=== PATIENT | male | born 1950 ===

== ENCOUNTER 2016-12-13 13:11 | Inpatient (IN) | payer OTHER ==
[2016-12-13] MEDS ORDERED: Sodium Chloride 0.9% 1,000 ML IV ONE (13:55)
[2016-12-13 14:39] LABS: BASO % 0.5 % (0.0-2.0); EOS # 0.1 K/uL (0.0-0.7); EOS % 1.4 % (0.0-4.0); HEMATOCRIT 46.4 % (35.0-51.0); LYMPH # 1.9 K/uL (1.0-4.3); LYMPH % 23.6 % (20.0-40.0); MEAN CELL VOLUME 92.1 fL (80.0-94.0); MEAN CORPUSCULAR HEMOGLOBIN 32.2 pg (27.0-31.0); MEAN PLATELET VOLUME 8.9 fL (7.2-11.7); MONO # 0.5 K/uL (0.0-0.8); MONO % 6.3 % (0.0-10.0); NRBC % 0.1 % (0.0-2.0); RED CELL DISTRIBUTION WIDTH 13.1 % (11.5-14.5); WHITE BLOOD COUNT 8.2 K/uL (4.8-10.8)
--- NOTE | 2016-12-13 14:42 | C.PDOC ---
History Of Present Illness 66 y/o male presents to ED with complaints of dizziness as "room spinning" since this morning. Patient states he had same symptoms 3 days ago and resolved but today symptoms worsen with associated nausea which prompted visit to ED today. No other complaints at this time. Time Seen by Provider: 12/13/16 13:42 Chief Complaint (Nursing): Dizziness/Lightheaded History Per: Patient History/Exam Limitations: no limitations Onset/Duration Of Symptoms: Days Current Symptoms Are (Timing): Still Present Past Medical History Reviewed: Historical Data, Nursing Documentation, Vital Signs Vital Signs: Last Vital Signs Temp 98 F 12/13/16 13:35 Pulse 72 12/13/16 13:35 Resp 20 12/13/16 13:35 BP 161/98 H 12/13/16 13:35 Pulse Ox 97 12/13/16 15:46 - Medical History PMH: Hypercholesterolemia Surgical History: No Surg Hx Family History: States: No Known Family Hx - Social History Hx Alcohol Use: No Hx Substance Use: No - Immunization History Hx Tetanus Toxoid Vaccination: No Hx Influenza Vaccination: No Hx Pneumococcal Vaccination: No Review Of Systems Constitutional: Negative for: Fever, Chills Gastrointestinal: Positive for: Nausea. Negative for: Vomiting, Abdominal Pain , Diarrhea Skin: Negative for: Rash Neurological: Positive for: Dizziness. Negative for: Weakness, Numbness, Change in Speech, Confusion Physical Exam - Physical Exam Appears: Non-toxic, No Acute Distress Skin: Normal Color, Warm, Dry, No Rash Head: Atraumatic, Normacephalic Eye(s): bilateral: Normal Inspection, PERRL, EOMI Oral Mucosa: Moist Neck: Normal ROM, Supple Chest: Symmetrical Cardiovascular: Rhythm Regular Respiratory: Normal Breath Sounds, No Rales, No Rhonchi, No Wheezing Gastrointestinal/Abdominal: Soft, No Tenderness, No Guarding, No Rebound Extremity: Normal ROM, Capillary Refill (<2 seconds) Neurological/Psych: Oriented x3, Normal Speech, Normal Motor, Normal Sensation ED Course And Treatment - Laboratory Results Result Diagrams: 12/13/16 14:31 12/13/16 14:31 Lab Interpretation: Normal ECG: Interpreted By Me, Viewed By Me ECG Rhythm: Sinus Rhythm, R BBB ECG Interpretation: No Acute Changes Rate From EC O2 Sat by Pulse Oximetry: 97 (RA) Pulse Ox Interpretation: Normal - Radiology CXR: Interpreted by Me CXR Interpretation: Yes: No Acute Disease - CT Scan/US No standard instances Other Rad Studies (CT/US): Read By Radiologist, Radiology Report Reviewed CT/US Interpretation: FINDINGS: HEMORRHAGE: No intracranial hemorrhage. BRAIN : There is a 9.5 mm lucency identified expanding the caudate head and narrowing the left frontal horn suspicious for potential acute subacute ischemic infarction. Differential diagnosis would also include infection or potential space-occupying lesion. Follow-up MRI is advised for greater characterization. Otherwise, a chronic lacune or dilated perivascular space is seen at the more lateral left basal ganglia. Sulci and cisterns appeared within normal limits and no cortical edema is appreciated throughout the cerebrum cerebellum or brainstem. There is no suspicious extra-axial fluid collection identified. Atherosclerotic changes are identified at the cavernous internal carotid artery segments at the skullbase. VENTRICLES: Unremarkable. No hydrocephalus. CALVARIUM: Unremarkable. PARANASAL SINUSES: Unremarkable as visualized. No significant inflammatory changes. MASTOID AIR CELLS: Unremarkable as visualized. No inflammatory changes. OTHER FINDINGS: None. IMPRESSION: Findings suspicious for a small ischemic infarct at the left caudate head of acute to subacute time frame though other etiologies are possible as discussed above. Follow-up MRI is advised for further characterization with remainder of the brain reflecting dilated perivascular space or chronic lacune at the more lateral left basal ganglia. Progress Note: Treated with IVF NSS. Ambulating with steady gait Reassessment Condition: Unchanged - Physician Consult Information Physician Contacted: Dasha Mcgarry Outcome Of Conversation: admit NIHSS Stroke Scale - Date/Time Evaluation Performed When Was NIHSS Performed: Baseline - How Severe is the Stoke Level of Consciousness: 0=Alert LOC to Questions: 0=Both comments correct LOC to commands: 0=Obeys both correctly Best Gaze: 0=Normal Visual: 0=No visual loss Facial: 0=Normal Motor Arm - Left: 0=No drift Motor Arm - Right: 0=No drift Motor Leg - Left: 0=No drift Motor Leg - Right: 0=No drift Limb Ataxia: 0=Absent Sensory: 0=Normal Best Language: 0=No aphasia Dysarthia: 0=Normal articulation Extinction & Inattention (Neglect): 0=Normal, no object Score: 0 Severity Of Stroke: 0= No Stroke Medical Decision Making Medical Decision Making: Plan: CT scan, Blood work, UA, ECG Disposition Discussed With : Dasha Mcgarry Doctor Will See Patient In The: Hospital - Disposition Disposition: HOME/ ROUTINE Disposition Time: 16:00 Condition: STABLE Forms: [facility] (Persian) - POA Present On Arrival: None - Clinical Impression Clinical Impression: Dizziness, Cerebrovascular accident (CVA) - PA / [employer] / Resident Statement MD/DO has reviewed & agrees with the documentation as recorded. - Scribe Statement The provider has reviewed the documentation as recorded by the Scribe Anshul Francis All medical record entries made by the Ondinaibe were at my direction and personally dictated by me. I have reviewed the chart and agree that the record accurately reflects my personal performance of the history, physical exam, medical decision making, and the department course for this patient. I have also personally directed, reviewed, and agree with the discharge instructions and disposition. Decision To Admit - Pt Status Changed To: Hospital Disposition Of: Inpatient - Admit Certification Admit to Inpatient:: After my assessment, the patient will require hospitalization for at least two midnights. This is because of the severity of symptoms shown, intensity of services needed, and/or the medical risk in this patient being treated as an outpatient. - InPatient: Physician Admission Certification: I certify that this patient requires 2 or more midnights of care for the following reason:: Ischemic Infarct. Dizziness - . Bed Request Type: Telemetry Admitting Physician: Dasha Mcgarry Patient Diagnosis: Dizziness, Cerebrovascular accident (CVA)
[2016-12-13] MEDS ORDERED: Sodium Chloride 0.9% 1,000 ML ONE (14:59)
[2016-12-13 15:01] LABS: CHLORIDE 100 mmol/L (98-107); POTASSIUM 3.7 mmol/L (3.6-5.2); SODIUM 134 mmol/L (132-148)
[2016-12-13 15:03] LABS: BILIRUBIN,TOTAL 0.5 mg/dL (0.2-1.3); CARBON DIOXIDE 23 mmol/L (22-30); GFR AFRICAN-AMERICAN > 60
[2016-12-13 15:04] LABS: ALB/GLOB RATIO 1.1 (1.0-2.1); ALKALINE PHOSPHATASE 57 U/L (38-126); ALT/SGPT 59 U/L (21-72); AST/SGOT 41 U/L (17-59); BLOOD UREA NITROGEN 15 mg/dL (9-20); CALCIUM 9.3 mg/dl (8.6-10.4); GLUCOSE,RANDOM 101 mg/dL (75-110); TOTAL PROTEIN 7.9 g/dL (6.3-8.3)
--- NOTE | 2016-12-13 15:06 | CT ---
PROCEDURE: CT HEAD WITHOUT CONTRAST. HISTORY: R/O Bleed COMPARISON: None available. TECHNIQUE: Axial computed tomography images were obtained through the head/brain without intravenous contrast. Radiation dose: Total exam DLP = 877.56 mGy-cm. This CT exam was performed using one or more of the following dose reduction techniques: Automated exposure control, adjustment of the mA and/or kV according to patient size, and/or use of iterative reconstruction technique. FINDINGS: HEMORRHAGE: No intracranial hemorrhage. BRAIN: There is a 9.5 mm lucency identified expanding the caudate head and narrowing the left frontal horn suspicious for potential acute subacute ischemic infarction. Differential diagnosis would also include infection or potential space-occupying lesion. Follow-up MRI is advised for greater characterization. Otherwise, a chronic lacune or dilated perivascular space is seen at the more lateral left basal ganglia. Sulci and cisterns appeared within normal limits and no cortical edema is appreciated throughout the cerebrum cerebellum or brainstem. There is no suspicious extra-axial fluid collection identified. Atherosclerotic changes are identified at the cavernous internal carotid artery segments at the skullbase. VENTRICLES: Unremarkable. No hydrocephalus. CALVARIUM: Unremarkable. PARANASAL SINUSES: Unremarkable as visualized. No significant inflammatory changes. MASTOID AIR CELLS: Unremarkable as visualized. No inflammatory changes. OTHER FINDINGS: None. IMPRESSION: Findings suspicious for a small ischemic infarct at the left caudate head of acute to subacute time frame though other etiologies are possible as discussed above. Follow-up MRI is advised for further characterization with remainder of the brain reflecting dilated perivascular space or chronic lacune at the more lateral left basal ganglia.
[2016-12-13 15:14] LABS: RBC URINE < 1 /hpf (0-3); URINE BACTERIA RARE (<OCC); URINE BILIRUBIN NEGATIVE (NEGATIVE); URINE BLOOD NEGATIVE (NEGATIVE); URINE COLOR Yellow (YELLOW); URINE GLUCOSE (UA) 2+ mg/dL (Normal); URINE KETONE NEGATIVE (NEGATIVE); URINE LEUKOCYTE ESTERASE NEG Leu/uL (Negative); URINE PROTEIN NEGATIVE (NEGATIVE); URINE UROBILINOGEN NORMAL mg/dL (0.2-1.0)
--- NOTE | 2016-12-13 15:53 | RAD ---
HISTORY: SOB COMPARISON: None available. TECHNIQUE: Chest PA and lateral FINDINGS: Examination limited by habitus. LUNGS: No focal consolidation. Please note that chest x-ray has limited sensitivity for the detection of pulmonary masses. PLEURA: No significant pleural effusion identified. No definite pneumothorax . CARDIOVASCULAR: Heart size appears within normal limits. OSSEOUS STRUCTURES: Degenerative changes of the spine. VISUALIZED UPPER ABDOMEN: Unremarkable. OTHER FINDINGS: None. IMPRESSION: No focal consolidation, significant pleural effusion, or definite pneumothorax identified.
--- NOTE | 2016-12-13 16:09 | CP.PCM.HP ---
<Namita Larsen - Last Filed: 12/13/16 16:33> History of Present Illness - History of Present Illness History of Present Illness: CC: " I was feeling dizzy" HPI: Patient is a 66 year old male with PMHx of hypertension, hyperlipidemia and Vitamin D deficiency presenting for dizziness that started this AM. Patient reports feeling groggy and lightheaded upon awakening. Patient says he took a sleeping pill, Abenol PM, at 2:30am this morning. Patient reports associated nausea. Patient denies having felt like the room was spinning or that he was spinning or feeling imbalanced. Patient reports resolution of symptoms with meclizine in ER. Patient reports an episode of dizziness on at 3pm during which he felt like the room was spinning. He did not feel any dizziness or lightheadedness on Sunday. Patient denies fever, chills, headache , vision change, chest pain, palpitations, SOB, abdominal pain, vomiting, diarrhea, constipation, dysuria, sick contacts. PMD: Dr. Jimenez PMHx: as above PSHx: denies Family Hx: Brother - colon CA, Mother- stomach CA, Father - liver CA Social History: smoked 15 cig/day from 1972 to 2000, denies ETOH, denies illicit drugs, works as a private line haul driver Allergies: ASA - hives Present on Admission - Present on Admission Any Indicators Present on Admission: No Review of Systems - Constitutional Constitutional: absent: Chills, Fever - EENT Eyes: absent: Change in Vision Ears: Dizziness Nose/Mouth/Throat: absent: Sore Throat - Cardiovascular Cardiovascular: absent: Chest Pain, Palpitations - Respiratory Respiratory: absent: Cough, Dyspnea - Gastrointestinal Gastrointestinal: Nausea. absent: Abdominal Pain, Constipation, Diarrhea, Vomiting - Genitourinary Genitourinary: absent: Dysuria - Musculoskeletal Musculoskeletal: absent: Neck Pain - Neurological Neurological: Dizziness, Weakness. absent: Confusion, Focal Weakness, Headaches , Syncope - Endocrine Endocrine: absent: Palpitations - Hematologic/Lymphatic Hematologic: absent: Easy Bleeding, Easy Bruising Past Patient History - Past Medical History & Family History Past Medical History?: No Pertinent Family History: colon CA, Mother- stomach CA, Father - liver CA - Past Social History Smoking Status: Former Smoker Occupation: private line haul driver Alcohol: None Drugs: Denies - CARDIAC Hx Hypercholesterolemia: Yes - PULMONARY Hx Respiratory Disorders: No - NEUROLOGICAL Hx Neurological Disorder: No - HEENT Hx HEENT Problems: No - RENAL Hx Chronic Kidney Disease: No - ENDOCRINE/METABOLIC Hx Endocrine Disorders: No - HEMATOLOGICAL/ONCOLOGICAL Hx Blood Disorders: No - INTEGUMENTARY Hx Dermatological Problems: No - MUSCULOSKELETAL/RHEUMATOLOGICAL Hx Musculoskeletal Disorders: No - GASTROINTESTINAL Hx Gastrointestinal Disorders: No - GENITOURINARY/GYNECOLOGICAL Hx Genitourinary Disorders: No - PSYCHIATRIC Hx Substance Use: No - SURGICAL HISTORY Hx Surgeries: No - ANESTHESIA Hx Anesthesia: No Meds Allergies/Adverse Reactions: Allergies Allergy/AdvReac Type Severity Reaction Status Date / Time aspirin Allergy RASH Verified 03/22/15 07:53 Physical Exam - Constitutional Appears: Non-toxic, No Acute Distress - Head Exam Head Exam: NORMAL INSPECTION - Eye Exam Eye Exam: EOMI, PERRL - ENT Exam ENT Exam: Mucous Membranes Moist - Respiratory Exam Respiratory Exam: Clear to Auscultation Bilateral, NORMAL BREATHING PATTERN. absent: Rales, Rhonchi, Wheezes - Cardiovascular Exam Cardiovascular Exam: REGULAR RHYTHM, +S1, +S2. absent: Gallop, Rubs, Systolic Murmur - GI/Abdominal Exam GI & Abdominal Exam: Normal Bowel Sounds, Soft. absent: Firm, Guarding, Tenderness - Extremities Exam Extremities exam: Positive for: normal capillary refill. Negative for: pedal edema - Neurological Exam Neurological exam: Alert, CN II-XII Intact, Normal Gait, Oriented x3 Additional comments: sensation intact b/l CN II-XII intact muscle strength 5/5 b/l negative Babinski negative Rhomberg negative finger to nose negative heel to bentley normal proprioception - Psychiatric Exam Psychiatric exam: Normal Affect, Normal Mood Results - Vital Signs Recent Vital Signs: Last Vital Signs Temp 98 F 12/13/16 13:35 Pulse 72 12/13/16 13:35 Resp 20 12/13/16 13:35 BP 161/98 H 12/13/16 13:35 Pulse Ox 97 12/13/16 15:46 - Labs Result Diagrams: 12/13/16 14:31 12/13/16 14:31 Labs: Laboratory Results - last 24 hr 12/13/16 12/13/16 12/13/16 14:31 14:31 15:05 WBC 8.2 RBC 5.04 Hgb 16.2 Hct 46.4 MCV 92.1 MCH 32.2 H MCHC 35.0 RDW 13.1 Plt Count 179 MPV 8.9 Neut % (Auto) 68.2 Lymph % (Auto) 23.6 [place] % (Auto) 6.3 Eos % (Auto) 1.4 Baso % (Auto) 0.5 Neut # 5.6 Lymph # 1.9 [place] # 0.5 Eos # 0.1 Baso # 0.0 Sodium 134 Potassium 3.7 Chloride 100 Carbon Dioxide 23 Anion Gap 14 BUN 15 Creatinine 0.8 Est GFR ( Amer) > 60 Est GFR (Non-Af Amer) > 60 Random Glucose 101 Calcium 9.3 Total Bilirubin 0.5 AST 41 ALT 59 Alkaline Phosphatase 57 Total Protein 7.9 Albumin 4.2 Globulin 3.7 Albumin/Globulin Ratio 1.1 Urine Color Yellow Urine Clarity Clear Urine pH 7.0 Ur Specific [place] 1.014 Urine Protein Negative Urine Glucose (UA) 2+ H Urine Ketones Negative Urine Blood Negative Urine Nitrate Negative Urine Bilirubin Negative Urine Urobilinogen Normal Ur Leukocyte Esterase Neg Urine RBC (Auto) < 1 Urine Bacteria Rare Assessment & Plan - Assessment and Plan (Free Text) Assessment: Left Caudate Infarct Likely secondary to history of hyperlipidemia and hypertension for which patient has previously refused to take medication Head CT 12/13/16 - suspicious for small ischemic infarct and left head of caudate of acute to subacute timeframe though other etiologies are possible. F/ U MRI is advised (please see full report) - F/U MRI in AM - F/U ECHO - F/U carotid dopplers - F/U lipid panel (LDL in 170s in April 2016), HgbA1C (5.3 in April 2016), TSH and free T4 (normal in April 2016) No ASA as patient is allergic Plavix 75mg PO daily Crestor 10mg PO HS Physical therapy Occupational therapy Neuro consult - Dr. Rosario - f/u recommendations Abnormal EKG EKG 12/13/16 - NSR with RBBB Same as EKG from 2016 Hypertension BP in 160s/100s Will keep in this range for at least 24 hours as patient has had an acute infarct Nursing communication to page resident if BP increases over 180/120 Will consider starting a low dose antihypertensive tomorrow Hyperlipidemia - F/U lipid panel Crestor 10mg PO HS Prophylaxis Protonix 40mg PO daily SCDs chemical VTE prophylaxis contraindicated secondary to acute infarct <Diego Maldonado - Last Filed: 12/13/16 19:02> Results - Vital Signs Recent Vital Signs: Last Vital Signs Temp 98 F 12/13/16 13:35 Pulse 71 12/13/16 16:30 Resp 23 12/13/16 16:30 BP 160/109 H 12/13/16 16:30 Pulse Ox 96 12/13/16 16:30 - Labs Result Diagrams: 12/13/16 14:31 12/13/16 14:31 Labs: Laboratory Results - last 24 hr 12/13/16 12/13/16 12/13/16 14:31 14:31 15:05 WBC 8.2 RBC 5.04 Hgb 16.2 Hct 46.4 MCV 92.1 MCH 32.2 H MCHC 35.0 RDW 13.1 Plt Count 179 MPV 8.9 Neut % (Auto) 68.2 Lymph % (Auto) 23.6 [place] % (Auto) 6.3 Eos % (Auto) 1.4 Baso % (Auto) 0.5 Neut # 5.6 Lymph # 1.9 [place] # 0.5 Eos # 0.1 Baso # 0.0 PT INR Sodium 134 Potassium 3.7 Chloride 100 Carbon Dioxide 23 Anion Gap 14 BUN 15 Creatinine 0.8 Est GFR ( Amer) > 60 Est GFR (Non-Af Amer) > 60 Random Glucose 101 Hemoglobin A1c Calcium 9.3 Total Bilirubin 0.5 AST 41 ALT 59 Alkaline Phosphatase 57 Troponin I Total Protein 7.9 Albumin 4.2 Globulin 3.7 Albumin/Globulin Ratio 1.1 Triglycerides Cholesterol LDL Cholesterol Direct HDL Cholesterol Urine Color Yellow Urine Clarity Clear Urine pH 7.0 Ur Specific [place] 1.014 Urine Protein Negative Urine Glucose (UA) 2+ H Urine Ketones Negative Urine Blood Negative Urine Nitrate Negative Urine Bilirubin Negative Urine Urobilinogen Normal Ur Leukocyte Esterase Neg Urine RBC (Auto) < 1 Urine Bacteria Rare Blood Type Antibody Screen 12/13/16 12/13/16 12/13/16 16:09 16:09 16:09 WBC RBC Hgb Hct MCV MCH MCHC RDW Plt Count MPV Neut % (Auto) Lymph % (Auto) [place] % (Auto) Eos % (Auto) Baso % (Auto) Neut # Lymph # [place] # Eos # Baso # PT 10.4 INR 0.9 Sodium Potassium Chloride Carbon Dioxide Anion Gap BUN Creatinine Est GFR ( Amer) Est GFR (Non-Af Amer) Random Glucose Hemoglobin A1c 5.3 Calcium Total Bilirubin AST ALT Alkaline Phosphatase Troponin I < 0.0120 Total Protein Albumin Globulin Albumin/Globulin Ratio Triglycerides 234 H D Cholesterol 215 H LDL Cholesterol Direct 186 H HDL Cholesterol 43 Urine Color Urine Clarity Urine pH Ur Specific [place] Urine Protein Urine Glucose (UA) Urine Ketones Urine Blood Urine Nitrate Urine Bilirubin Urine Urobilinogen Ur Leukocyte Esterase Urine RBC (Auto) Urine Bacteria Blood Type Antibody Screen 12/13/16 16:09 WBC RBC Hgb Hct MCV MCH MCHC RDW Plt Count MPV Neut % (Auto) Lymph % (Auto) [place] % (Auto) Eos % (Auto) Baso % (Auto) Neut # Lymph # [place] # Eos # Baso # PT INR Sodium Potassium Chloride Carbon Dioxide Anion Gap BUN Creatinine Est GFR ( Amer) Est GFR (Non-Af Amer) Random Glucose Hemoglobin A1c Calcium Total Bilirubin AST ALT Alkaline Phosphatase Troponin I Total Protein Albumin Globulin Albumin/Globulin Ratio Triglycerides Cholesterol LDL Cholesterol Direct HDL Cholesterol Urine Color Urine Clarity Urine pH Ur Specific [place] Urine Protein Urine Glucose (UA) Urine Ketones Urine Blood Urine Nitrate Urine Bilirubin Urine Urobilinogen Ur Leukocyte Esterase Urine RBC (Auto) Urine Bacteria Blood Type B POSITIVE Antibody Screen Negative Attending/Attestation - Attestation I have personally seen and examined this patient.: Yes I have fully participated in the care of the patient.: Yes I have reviewed all pertinent clinical information: Yes Notes (Text): Patient is a 66 year old male with PMHx of hypertension, hyperlipidemia and Vitamin D deficiency presenting for dizziness that started at 3pm on 12/11 .His dizziness got better yesterday and came back this morning.He is feeling better after he got Meclizine at ER.He was not taking meds for HTH and HLD Dizziness was associated with nausea,no weakness,no vision changes,nO change in his speech Patient was seen and examined with the resident at ER.Agree with the residents assessment and plan.We will monitor BP without antihypertensive at this time / permissive hypertension D/W neurologist We will start on low dose ACEI/ARB,plavix and statin .MRI and corotid doppler ordered
[2016-12-13 16:20] LABS: INR 0.9
[2016-12-13 16:24] LABS: CHOLESTEROL 215 mg/dL (0-199)
--- NOTE | 2016-12-14 07:21 | CP.PCM.CON ---
History of Present Illness - History of Present Illness History of Present Illness: CONSULT DICTATED ATAXIC HEMIPARESIS STROKE PROPHYLAXIS CONTROL HTN, DYSLIPEMIA WORK UP PER ORDER Past Patient History - Past Medical History & Family History Past Medical History?: Yes - Past Social History Smoking Status: Former Smoker - CARDIAC Hx Cardiac Disorders: Yes Hx Hypercholesterolemia: Yes - PULMONARY Hx Respiratory Disorders: No - NEUROLOGICAL Hx Neurological Disorder: No - HEENT Hx HEENT Problems: No - RENAL Hx Chronic Kidney Disease: No - ENDOCRINE/METABOLIC Hx Endocrine Disorders: No - HEMATOLOGICAL/ONCOLOGICAL Hx Blood Disorders: No - INTEGUMENTARY Hx Dermatological Problems: No - MUSCULOSKELETAL/RHEUMATOLOGICAL Hx Musculoskeletal Disorders: No Hx Falls: No - GASTROINTESTINAL Hx Gastrointestinal Disorders: No - GENITOURINARY/GYNECOLOGICAL Hx Genitourinary Disorders: No - PSYCHIATRIC Hx Psychophysiologic Disorder: No Hx Substance Use: No - SURGICAL HISTORY Hx Surgeries: No - ANESTHESIA Hx Anesthesia: Yes Hx Anesthesia Reactions: No Meds Allergies/Adverse Reactions: Allergies Allergy/AdvReac Type Severity Reaction Status Date / Time aspirin Allergy RASH Verified 03/22/15 07:53 - Medications Medications: Current Medications Clopidogrel Bisulfate (Plavix) 75 mg PO DAILY [facility] Last Admin: 12/13/16 16:41 Dose: 75 mg Famotidine (Pepcid) 20 mg PO BID [facility] Last Admin: 12/13/16 18:17 Dose: 20 mg Losartan Potassium (Cozaar) 25 mg PO DAILY [facility] Rosuvastatin Calcium (Crestor) 10 mg PO HS [facility] Last Admin: 12/13/16 22:02 Dose: 10 mg Results - Vital Signs Recent Vital Signs: Last Vital Signs Temp 97.7 F 12/14/16 00:26 Pulse 62 12/14/16 06:25 Resp 20 12/14/16 00:26 BP 132/88 12/14/16 06:25 Pulse Ox 95 12/14/16 00:26 - Labs Result Diagrams: 12/13/16 14:31 12/13/16 14:31 Labs: Laboratory Results - last 24 hr 12/13/16 12/13/16 12/13/16 14:31 14:31 15:05 WBC 8.2 RBC 5.04 Hgb 16.2 Hct 46.4 MCV 92.1 MCH 32.2 H MCHC 35.0 RDW 13.1 Plt Count 179 MPV 8.9 Neut % (Auto) 68.2 Lymph % (Auto) 23.6 [place] % (Auto) 6.3 Eos % (Auto) 1.4 Baso % (Auto) 0.5 Neut # 5.6 Lymph # 1.9 [place] # 0.5 Eos # 0.1 Baso # 0.0 PT INR Sodium 134 Potassium 3.7 Chloride 100 Carbon Dioxide 23 Anion Gap 14 BUN 15 Creatinine 0.8 Est GFR ( Amer) > 60 Est GFR (Non-Af Amer) > 60 Random Glucose 101 Hemoglobin A1c Calcium 9.3 Total Bilirubin 0.5 AST 41 ALT 59 Alkaline Phosphatase 57 Troponin I Total Protein 7.9 Albumin 4.2 Globulin 3.7 Albumin/Globulin Ratio 1.1 Triglycerides Cholesterol LDL Cholesterol Direct HDL Cholesterol Urine Color Yellow Urine Clarity Clear Urine pH 7.0 Ur Specific [place] 1.014 Urine Protein Negative Urine Glucose (UA) 2+ H Urine Ketones Negative Urine Blood Negative Urine Nitrate Negative Urine Bilirubin Negative Urine Urobilinogen Normal Ur Leukocyte Esterase Neg Urine RBC (Auto) < 1 Urine Bacteria Rare Blood Type Antibody Screen 12/13/16 12/13/16 12/13/16 16:09 16:09 16:09 WBC RBC Hgb Hct MCV MCH MCHC RDW Plt Count MPV Neut % (Auto) Lymph % (Auto) [place] % (Auto) Eos % (Auto) Baso % (Auto) Neut # Lymph # [place] # Eos # Baso # PT 10.4 INR 0.9 Sodium Potassium Chloride Carbon Dioxide Anion Gap BUN Creatinine Est GFR ( Amer) Est GFR (Non-Af Amer) Random Glucose Hemoglobin A1c 5.3 Calcium Total Bilirubin AST ALT Alkaline Phosphatase Troponin I < 0.0120 Total Protein Albumin Globulin Albumin/Globulin Ratio Triglycerides 234 H D Cholesterol 215 H LDL Cholesterol Direct 186 H HDL Cholesterol 43 Urine Color Urine Clarity Urine pH Ur Specific [place] Urine Protein Urine Glucose (UA) Urine Ketones Urine Blood Urine Nitrate Urine Bilirubin Urine Urobilinogen Ur Leukocyte Esterase Urine RBC (Auto) Urine Bacteria Blood Type Antibody Screen 12/13/16 16:09 WBC RBC Hgb Hct MCV MCH MCHC RDW Plt Count MPV Neut % (Auto) Lymph % (Auto) [place] % (Auto) Eos % (Auto) Baso % (Auto) Neut # Lymph # [place] # Eos # Baso # PT INR Sodium Potassium Chloride Carbon Dioxide Anion Gap BUN Creatinine Est GFR ( Amer) Est GFR (Non-Af Amer) Random Glucose Hemoglobin A1c Calcium Total Bilirubin AST ALT Alkaline Phosphatase Troponin I Total Protein Albumin Globulin Albumin/Globulin Ratio Triglycerides Cholesterol LDL Cholesterol Direct HDL Cholesterol Urine Color Urine Clarity Urine pH Ur Specific [place] Urine Protein Urine Glucose (UA) Urine Ketones Urine Blood Urine Nitrate Urine Bilirubin Urine Urobilinogen Ur Leukocyte Esterase Urine RBC (Auto) Urine Bacteria Blood Type B POSITIVE Antibody Screen Negative
[2016-12-14 07:56] LABS: BASO % 0.6 % (0.0-2.0); EOS # 0.3 K/uL (0.0-0.7); EOS % 3.6 % (0.0-4.0); HEMATOCRIT 46.6 % (35.0-51.0); LYMPH # 2.3 K/uL (1.0-4.3); LYMPH % 33.8 % (20.0-40.0); MEAN CELL VOLUME 93.7 fL (80.0-94.0); MEAN CORPUSCULAR HEMOGLOBIN 32.9 pg (27.0-31.0); MEAN CORPUSCULAR HGB CONC 35.1 g/dL (33.0-37.0); MEAN PLATELET VOLUME 9.7 fL (7.2-11.7); MONO # 0.6 K/uL (0.0-0.8); MONO % 8.3 % (0.0-10.0); NRBC % 0.2 % (0.0-2.0); RED CELL DISTRIBUTION WIDTH 13.3 % (11.5-14.5); WHITE BLOOD COUNT 6.9 K/uL (4.8-10.8)
[2016-12-14 08:05] LABS: CHLORIDE 101 mmol/L (98-107); POTASSIUM 3.7 mmol/L (3.6-5.2); SODIUM 136 mmol/L (132-148)
[2016-12-14 08:07] LABS: GFR AFRICAN-AMERICAN > 60
[2016-12-14 08:08] LABS: ALB/GLOB RATIO 1.1 (1.0-2.1); ALKALINE PHOSPHATASE 57 U/L (38-126); ALT/SGPT 57 U/L (21-72); AST/SGOT 35 U/L (17-59); BILIRUBIN,TOTAL 0.8 mg/dL (0.2-1.3); BLOOD UREA NITROGEN 14 mg/dL (9-20); CARBON DIOXIDE 27 mmol/L (22-30); GLUCOSE,RANDOM 71 mg/dL (75-110); TOTAL PROTEIN 7.7 g/dL (6.3-8.3)
[2016-12-14 08:09] LABS: CALCIUM 9.2 mg/dl (8.6-10.4)
[2016-12-14 09:50] LABS: THYROID STIMULATING HORMONE 1.13 mIU/L (0.46-4.68)
--- NOTE | 2016-12-14 10:58 | MRI ---
PROCEDURE: MRI BRAIN WITHOUT CONTRAST HISTORY: acute v. subacute infarct on Head CT COMPARISON: None. TECHNIQUE: Multiplanar, multisequence MR images of the brain were obtained without intravenous contrast enhancement. FINDINGS: HEMORRHAGE: None DWI: No evidence of an acute or early subacute infarction. BRAIN PARENCHYMA: No mass effect or edema. Chronic microvascular changes are seen in the periventricular white matter. There is a well-defined chronic infarct adjacent to the left frontal horn. There are no acute infarcts VENTRICLES: Unremarkable. No hydrocephalus. CRANIUM: Unremarkable. ORBITS: Grossly unremarkable. PARANASAL SINUSES/MASTOIDS: Clear VASCULAR SYSTEM: Skull base flow voids intact. OTHER FINDINGS: None. IMPRESSION: Chronic microvascular changes are seen in the periventricular white matter. There is a well-defined chronic infarct adjacent to the left frontal horn. There are no acute infarcts
--- NOTE | 2016-12-14 14:08 | CP.PCM.PN ---
Subjective - Date & Time of Evaluation Date of Evaluation: 12/14/16 Time of Evaluation: 13:59 - Subjective Subjective: PGY-[address] Maldonado. Patient was seen and examined this afternoon. He was in good mood, sitting comfortably in chair chatting with his nurse. He had no complaints. He denies feeling dizzy or lightheaded. He denies fever, chills, headache, vision change, chest pain, palpitations, SOB, abdominal pain, vomiting, diarrhea, constipation , dysuria. Objective - Vital Signs/Intake and Output Vital Signs (last 24 hours): Temp Pulse Resp BP Pulse Ox 97.6 F 65 17 148/96 H 98 12/14/16 07:25 12/14/16 08:39 12/14/16 07:25 12/14/16 07:25 12/14/16 07:25 Intake and Output: 12/14/16 12/14/16 06:59 18:59 Intake Total 120 Balance 120 - Medications Medications: Current Medications Clopidogrel Bisulfate (Plavix) 75 mg PO DAILY [facility] Last Admin: 12/14/16 09:35 Dose: 75 mg Famotidine (Pepcid) 20 mg PO BID [facility] Last Admin: 12/14/16 09:35 Dose: 20 mg Losartan Potassium (Cozaar) 25 mg PO DAILY [facility] Last Admin: 12/14/16 09:35 Dose: 25 mg Rosuvastatin Calcium (Crestor) 10 mg PO HS [facility] Last Admin: 12/13/16 22:02 Dose: 10 mg - Labs Labs: 12/14/16 07:16 12/14/16 07:16 PT 10.4 SECONDS (9.7-12.2) 12/13/16 16:09 INR 0.9 12/13/16 16:09 - Additional Findings Additional findings: - Constitutional Appears: Non-toxic, No Acute Distress - Head Exam Head Exam: NORMAL INSPECTION - Eye Exam Eye Exam: EOMI, PERRL - ENT Exam ENT Exam: Mucous Membranes Moist - Respiratory Exam Respiratory Exam: Clear to Auscultation Bilateral, NORMAL BREATHING PATTERN. absent: Rales, Rhonchi, Wheezes - Cardiovascular Exam Cardiovascular Exam: REGULAR RHYTHM, +S1, +S2. absent: Gallop, Rubs, Systolic Murmur - GI/Abdominal Exam GI & Abdominal Exam: Normal Bowel Sounds, Soft. absent: Firm, Guarding, Tenderness - Extremities Exam Extremities exam: Positive for: normal capillary refill. Negative for: pedal edema - Neurological Exam Neurological exam: Alert, CN II-XII Intact, Normal Gait, Oriented x3 Additional comments: sensation intact b/l CN II-XII intact muscle strength 5/5 b/l negative finger to nose - Psychiatric Exam Psychiatric exam: Normal Affect, Normal Mood Assessment and Plan - Assessment and Plan (Free Text) Assessment: Left Caudate Infarct Likely secondary to history of hyperlipidemia and hypertension for which patient has previously refused to take medication Neuro consult - Dr. Rosario Head CT 12/13/16 - suspicious for small ischemic infarct and left head of caudate of acute to subacute timeframe though other etiologies are possible. F/ U MRI is advised (please see full report) Brain MRI 12/14/16 - Chronic microvascular changes are seen in the periventricular white matter. There is a well-defined chronic infarct adjacent to the left frontal horn. There are no acute infarcts. F/U ECHO 12/14/16 F/U carotid dopplers 12/14/16 Lipid panel Triglycerides 234H Cholesterol 215H LDL 186H HDL 43 (LDL in 170s in 04/2016) HgbA1C 5.3 (also 5.3 in 04/2016) TSH and free T4 normal (also normal in 04/2016) No ASA as patient is allergic Plavix 75mg PO daily Crestor 10mg PO HS Abnormal EKG EKG 12/13/16 - NSR with RBBB Same as EKG from 2016 Hypertension BP well controlled this morning, within normal range Will keep in this range for at least 24 hours as patient has had an acute infarct Nursing communication to page resident if BP increases over 180/120 Hyperlipidemia Lipid panel Triglycerides 234H Cholesterol 215H LDL 186H HDL 43 LDL in 170s in 04/2016 Crestor 10mg PO HS Prophylaxis Protonix 40mg PO daily SCDs chemical VTE prophylaxis contraindicated secondary to acute infarct Physical therapy Occupational therapy
--- NOTE | 2016-12-14 16:36 | CON ---
DATE: 12/14/2016 TIME OF EVALUATION: 06:45 a.m. ATTENDING PHYSICIAN: . LOCATION: The patient is in room 663, bed A. REASON FOR THE CONSULTATION: Dizziness. CHIEF COMPLAINT: The patient was brought into [facility] with history of persistent dizziness. From neurological point of view, I was called into evaluate him for further management. HISTORY OF PRESENT ILLNESS: Mr. Gonzalo Crook is a 66-year-old right-handed male who used to be normal in health until 3 days ago on Sunday, while he was at work, he felt dizziness, manifesting as vertiginous feeling, not associating with nausea or vomiting, some sign of unsteady gait. With that symptoms, he went home. He stayed home. He had a hot chocolate and he felt better. Following day, he went to work with no problem. The third day, on Sunday, while he was at work, similar episodes happened, then decided himself to come to the hospital for further evaluation. This episode not associating with visual, bulbar, sensory, motor dysfunction. No nausea. No vomiting. No double vision. PAST MEDICAL HISTORY: History of hypertension, never been treated. PERSONAL HISTORY: No smoking, no alcohol use; however, he quit smoking many years ago. REVIEW OF SYSTEMS: 12-point systems being reviewed. From neuro, dizziness. MEDICATIONS AT HOME: None. PHYSICAL EXAMINATION: VITAL SIGNS: Blood pressure 132/88, mean arterial pressure of 102, respiratory rate 16, temperature afebrile. NECK: Supple. No carotid bruit. HEART: Sounds regular. CHEST: Fair air entry. EXTREMITIES: Normal. Not externally rotated. NEUROLOGIC EXAMINATION: MENTAL STATUS EXAMINATION: He is awake, alert, oriented to person, place and time. Speech is clear. Naming, repetition, fluency, and comprehension all within normal. CRANIAL NERVE EXAMINATION: Visual field intact. Pupils are reactive to light. Extraocular movement normal. No nystagmus. No facial or sensory deficit. Mild facial asymmetry manifesting as flattening of the right nasolabial fold. Hearing is normal. Tongue is midline. Good gag. MOTOR EXAMINATION: Outstretched hand with eyes closed. No drift is noted. Power is symmetric on either side. Deep tendon reflexes are absent. Plantars are downgoing. SENSORY EXAMINATION: Grossly intact. No cortical sensory loss. COORDINATION: Jldrja-mroc-fwensg test is intact. GAIT: He could able to walk normal. He does not feel anything abnormal at present. Tandem is somewhat poor. WORKUP: CT of the head reviewed by me showed hyperlucency at left caudate area, possible subacute form of stroke. No hemorrhage noted. No mass effect noted. EKG normal sinus rhythm. LABORATORY DATA: Blood workup: WBC 8.2, hemoglobin 16.2, hematocrit 46.4, and platelets 179. PT 10.4, INR was 0.9. Sodium 134, potassium 3.7, chloride 100, bicarbonate 23, BUN 15, creatinine 0.8, GFR more than 60, triglycerides 234, cholesterol 215, LDL 116, HDL 43. Urinalysis shows 2+ glucosuria. CONCLUSION: Mr. Gonzalo Crook has been presenting with ataxic hemiparesis, which is a possible right lower brain dysfunction. His CAT scan finding shows a subacute process of stroke process, it could be related to it or sometime lower brainstem dysfunction, which may not be visualized in the CAT scan at present. The reason for the stroke which include he is overweight, sex and dyslipidemia including uncontrolled hypertension. RECOMMENDATIONS: 1. MRI of the brain/carotid Doppler and echocardiogram to be done. 2. The patient is allergic to aspirin. The patient should be placed on Plavix, statin and angiotensin receptor blockers can be added, which was discussed with attending. If the patient is stable for the next 24-hour period, the patient can be discharged and should have followup visit with neurologist for further management. The patient will be followed while he is in the hospital. Miguel Rosario MD
[2016-12-14 16:44] VITALS: PULSE 74
[2016-12-14 17:14] VITALS: BP 144/84; RESP 20; TEMP 97.7; O2SAT 97
--- NOTE | 2016-12-14 17:16 | CP.PCM.DIS ---
Provider - Provider Date of Admission: 12/13/16 15:24 Attending physician: Diego Maldonado MD Primary care physician: PMD: Dr Jimenez Consults: Neuro: Dr Rosario Time Spent in preparation of Discharge (in minutes): 45 Diagnosis - Discharge Diagnosis (1) Cerebrovascular accident (CVA) Status: Resolved Priority: High Hospital Course - Lab Results Lab Results: Most Recent Lab Values WBC 6.9 K/uL (4.8-10.8) 12/14/16 07:16 RBC 4.98 Mil/uL (4.40-5.90) 12/14/16 07:16 Hgb 16.4 g/dL (12.0-18.0) 12/14/16 07:16 Hct 46.6 % (35.0-51.0) 12/14/16 07:16 MCV 93.7 fL (80.0-94.0) 12/14/16 07:16 MCH 32.9 pg (27.0-31.0) H 12/14/16 07:16 MCHC 35.1 g/dL (33.0-37.0) 12/14/16 07:16 RDW 13.3 % (11.5-14.5) 12/14/16 07:16 Plt Count 187 K/uL (130-400) 12/14/16 07:16 MPV 9.7 fL (7.2-11.7) 12/14/16 07:16 Neut % (Auto) 53.7 % (50.0-75.0) 12/14/16 07:16 Lymph % (Auto) 33.8 % (20.0-40.0) 12/14/16 07:16 [place] % (Auto) 8.3 % (0.0-10.0) 12/14/16 07:16 Eos % (Auto) 3.6 % (0.0-4.0) 12/14/16 07:16 Baso % (Auto) 0.6 % (0.0-2.0) 12/14/16 07:16 Neut # 3.7 K/uL (1.8-7.0) 12/14/16 07:16 Lymph # 2.3 K/uL (1.0-4.3) 12/14/16 07:16 [place] # 0.6 K/uL (0.0-0.8) 12/14/16 07:16 Eos # 0.3 K/uL (0.0-0.7) 12/14/16 07:16 Baso # 0.0 K/uL (0.0-0.2) 12/14/16 07:16 PT 10.4 SECONDS (9.7-12.2) 12/13/16 16:09 INR 0.9 12/13/16 16:09 Sodium 136 mmol/L (132-148) 12/14/16 07:16 Potassium 3.7 mmol/L (3.6-5.2) 12/14/16 07:16 Chloride 101 mmol/L (98-107) 12/14/16 07:16 Carbon Dioxide 27 mmol/L (22-30) 12/14/16 07:16 Anion Gap 12 (10-20) 12/14/16 07:16 BUN 14 mg/dL (9-20) 12/14/16 07:16 Creatinine 0.9 mg/dL (0.8-1.5) 12/14/16 07:16 Est GFR ( Amer) > 60 12/14/16 07:16 Est GFR (Non-Af Amer) > 60 12/14/16 07:16 Random Glucose 71 mg/dL (75-110) L 12/14/16 07:16 Hemoglobin A1c 5.3 % (4.2-6.5) 12/14/16 07:08 Calcium 9.2 mg/dl (8.6-10.4) 12/14/16 07:16 Total Bilirubin 0.8 mg/dL (0.2-1.3) 12/14/16 07:16 AST 35 U/L (17-59) 12/14/16 07:16 ALT 57 U/L (21-72) 12/14/16 07:16 Alkaline Phosphatase 57 U/L (38-126) 12/14/16 07:16 Troponin I < 0.0120 ng/mL (0.00-0.120) 12/13/16 16:09 Total Protein 7.7 g/dL (6.3-8.3) 12/14/16 07:16 Albumin 4.0 g/dL (3.5-5.0) 12/14/16 07:16 Globulin 3.7 gm/dL (2.2-3.9) 12/14/16 07:16 Albumin/Globulin Ratio 1.1 (1.0-2.1) 12/14/16 07:16 Triglycerides 234 mg/dL (0-149) H D 12/13/16 16:09 Cholesterol 215 mg/dL (0-199) H 12/13/16 16:09 LDL Cholesterol Direct 186 mg/dL (0-129) H 12/13/16 16:09 HDL Cholesterol 43 mg/dL (30-70) 12/13/16 16:09 Free T4 0.82 ng/dL (0.78-2.19) 12/14/16 07:16 TSH 3rd Generation 1.13 mIU/L (0.46-4.68) 12/14/16 07:16 Urine Color Yellow (YELLOW) 12/13/16 15:05 Urine Clarity Clear (Clear) 12/13/16 15:05 Urine pH 7.0 (5.0-8.0) 12/13/16 15:05 Ur Specific [place] 1.014 (1.003-1.030) 12/13/16 15:05 Urine Protein Negative mg/dL (NEGATIVE) 12/13/16 15:05 Urine Glucose (UA) 2+ mg/dL (Normal) H 12/13/16 15:05 Urine Ketones Negative mg/dL (NEGATIVE) 12/13/16 15:05 Urine Blood Negative (NEGATIVE) 12/13/16 15:05 Urine Nitrate Negative (NEGATIVE) 12/13/16 15:05 Urine Bilirubin Negative (NEGATIVE) 12/13/16 15:05 Urine Urobilinogen Normal mg/dL (0.2-1.0) 12/13/16 15:05 Ur Leukocyte Esterase Neg Elana/uL (Negative) 12/13/16 15:05 Urine RBC (Auto) < 1 /hpf (0-3) 12/13/16 15:05 Urine Bacteria Rare (<OCC) 12/13/16 15:05 Blood Type B POSITIVE 12/13/16 16:09 Antibody Screen Negative 12/13/16 16:09 - Hospital Course Hospital Course: CC: " I was feeling dizzy" HPI: Patient is a 66 year old male with PMHx of hypertension, hyperlipidemia and Vitamin D deficiency presenting for dizziness that started this AM. Patient reports feeling groggy and lightheaded upon awakening. Patient says he took a sleeping pill, Abenol PM, at 2:30am this morning. Patient reports associated nausea. Patient denies having felt like the room was spinning or that he was spinning or feeling imbalanced. Patient reports resolution of symptoms with meclizine in ER. Patient reports an episode of dizziness on at 3pm during which he felt like the room was spinning. He did not feel any dizziness or lightheadedness on Sunday. Patient denies fever, chills, headache , vision change, chest pain, palpitations, SOB, abdominal pain, vomiting, diarrhea, constipation, dysuria, sick contacts. PMD: Dr. Jimenez PMHx: as above PSHx: denies Family Hx: Brother - colon CA, Mother- stomach CA, Father - liver CA Social History: smoked 15 cig/day from 1972 to 2000, denies ETOH, denies illicit drugs, works as a private courtesy van driver Allergies: [facility] COURSE: The patient presented with dizziness. A head CT was done which showed "suspicious for small ischemic infarct and left head of caudate of acute to subacute timeframe though other etiologies are possible". Dr Rosario of Neurology was consulted. A Brain MRI was done which showed "Chronic microvascular changes are seen in the periventricular white matter. There is a well-defined chronic infarct adjacent to the left frontal horn. There are no acute infarcts". The patient's presenting symptom of dizziness resolved within hours after taking meclazine. A lipid panel, HgbA1C and TSH/T4 were ordered. His lipid panel were abnormal: Triglycerides 234H Cholesterol 215H LDL 186H HDL 43. His HgbA1C and TSH/T4 values were normal. An EKG was done which showed NSR with RBBB, which was the same as EKG from 2016. The medications he was administered were: Plavix 75mg PO daily, Crestor 10mg PO HS, and Losartan 25mg PO daily. Of note, the patient is allergic to aspirin, his face swells and he has trouble breathing. Discharge Exam - Head Exam Head Exam: NORMAL INSPECTION - Additional Findings Additional findings: - Constitutional Appears: Non-toxic, No Acute Distress - Head Exam Head Exam: NORMAL INSPECTION - Eye Exam Eye Exam: EOMI, PERRL - ENT Exam ENT Exam: Mucous Membranes Moist - Respiratory Exam Respiratory Exam: Clear to Auscultation Bilateral, NORMAL BREATHING PATTERN. absent: Rales, Rhonchi, Wheezes - Cardiovascular Exam Cardiovascular Exam: REGULAR RHYTHM, +S1, +S2. absent: Gallop, Rubs, Systolic Murmur - GI/Abdominal Exam GI & Abdominal Exam: Normal Bowel Sounds, Soft. absent: Firm, Guarding, Tenderness - Extremities Exam Extremities exam: Positive for: normal capillary refill. Negative for: pedal edema - Neurological Exam Neurological exam: Alert, CN II-XII Intact, Normal Gait, Oriented x3 Additional comments: sensation intact b/l CN II-XII intact muscle strength 5/5 b/l negative finger to nose - Psychiatric Exam Psychiatric exam: Normal Affect, Normal Mood Discharge Plan - Discharge Medications Prescriptions: Clopidogrel [Plavix] 75 mg PO DAILY #30 tab Losartan [Cozaar] 25 mg PO DAILY #30 tab Rosuvastatin Calcium [Crestor] 10 mg PO HS #30 tab - Follow Up Plan Condition: STABLE Disposition: HOME/ ROUTINE Additional Instructions: Patient is medically stable for discharge. The patient will be discharged with the following NEW medications: Clopidogrel 75mg 1 tablet by mouth once a day Losartan 25mg 1 tablet by mouth once a day Rosuvastatin 10mg 1 tablet by mouth once a day The patient is to continue his home medication of fish oil. The patient is to make an appointment with his PMD, Dr Jimenez, in the [facility] and follow-up regarding this admission. Please take care.
--- NOTE | 2016-12-14 23:10 | CARD ---
APPROVED REPORT EKG Measurement Heart [id number] <Conclusion> Normal sinus rhythm Right bundle branch block Abnormal ECG
--- NOTE | 2016-12-15 00:40 | CARD ---
APPROVED REPORT EXAM: Two-dimensional and M-mode echocardiogram with Doppler and color Doppler. Other Information Quality : GoodRhythm : NSR INDICATION Dizziness and Vertigo STROKE, ISCHEMIC INFARCT 2D DIMENSIONS IVSd1.1 (0.7-1.1cm)LVDd4.0 (3.9-5.9cm) PWd1.1 (0.7-1.1cm)LVDs2.8 (2.5-4.0cm) FS (%) 28.7 %LVEF (%)55.9 (>50%) M-Mode DIMENSIONS Left Atrium (MM)3.43 (2.5-4.0cm)Aortic Root3.61 (2.2-3.7cm) Aortic Cusp Exc.2.57 (1.5-2.0cm) Mitral Valve MV E Lcwrvqje88.1cm/sMV A Crcozpfc53.0cm/sE/A ratio0.9 TDI E/Lateral E'0.0E/Medial E'0.0 Tricuspid Valve TR Peak Assqmmyu282ll/sTR Peak Gr.[id number] LEFT VENTRICLE The left ventricle is normal size. There is normal left ventricular wall thickness. Left ventricle systolic function is normal. The Ejection Fraction is 55-60%. There is normal LV segmental wall motion. The left ventricular diastolic function is normal. No left ventricle thrombus noted on this study. RIGHT VENTRICLE The right ventricle is normal size. The right ventricular systolic function is normal. ATRIA The left atrium size is normal. The right atrium size is normal. AORTIC VALVE The aortic valve is mildly thickened. The aortic valve is trileaflet. No aortic regurgitation is present. There is no aortic valvular stenosis. There is no aortic valvular vegetation. MITRAL VALVE Mitral annular calcification is mild to moderate. There is no evidence of mitral valve prolapse. There is no mitral valve stenosis. Mitral regurgitation is trace to mild. TRICUSPID VALVE The tricuspid valve is normal in structure. There is mild tricuspid regurgitation. Right ventricular systolic pressure is estimated at less than 30 mmHg. There is no pulmonary hypertension. There is no tricuspid valve prolapse or vegetation. There is no tricuspid valve stenosis. PULMONIC VALVE The pulmonic valve is not well visualized. There is trace pulmonic valvular regurgitation. GREAT VESSELS The aortic root is normal in size. The IVC is normal in size and collapses >50% with inspiration. PERICARDIAL EFFUSION There is no pericardial effusion. There is no pleural effusion. <Conclusion> The left ventricle is normal size. Left ventricle systolic function is normal. The Ejection Fraction is 55-60%. The left ventricular diastolic function is normal. The right ventricle is normal size. The right ventricular systolic function is normal. The left atrium size is normal. The right atrium size is normal. There is mild tricuspid regurgitation. Mitral regurgitation is trace to mild.
--- NOTE | 2016-12-15 13:57 | VASCLAB ---
PROCEDURE: HISTORY: Stroke COMPARISON: None available. TECHNIQUE: Grayscale and duplex Doppler evaluation of the cervical carotid and vertebral arteries were performed. The common carotid, carotid bifurcations and cervical Internal Carotid Artery (ICA) and proximal External Carotid Artery (ECA) were evaluated. The vertebral arteries were evaluated for gross patency and flow direction. Report prepared by RM Caceres FINDINGS: RIGHT CAROTID ARTERIES: 1. Common Carotid Artery: No significant focal plaque formation of the right common carotid artery. Maximum Peak Systolic velocity: 85 cm/sec: End-diastolic velocity 18 cm/sec. 2. Carotid Bifurcation: Heterogeneous plaque formation. Maximum Peak Systolic velocity: 46 cm/sec: End-diastolic velocity 12 cm/sec. 3. Internal Carotid Artery: Plaque description: Heterogeneous 3.1. Proximal Segment: Peak systolic velocity 70 cm/sec: End-diastolic velocity 24 cm/sec - % stenosis 0-15% 3.2. Middle Segment: Peak systolic velocity 49 cm/sec: End-diastolic velocity 18 cm/sec - % stenosis 0-15% 3.3. Distal Segment: Peak systolic velocity 56 cm/sec: End-diastolic velocity 12 cm/sec - % stenosis 0-15% 4. External Carotid Artery: No significant focal plaque formation. Peak systolic velocity 91 cm/sec 5. ICA/CCA Ratio: 1.2 LEFT CAROTID ARTERIES: 1. Common Carotid Artery: No significant focal plaque formation of the left common carotid artery. Maximum Peak Systolic velocity: 102 cm/sec: End-diastolic velocity 24 cm/sec. 2. Carotid Bifurcation: Homogeneous plaque formation. Maximum Peak Systolic velocity: 43 cm/sec: End-diastolic velocity 11 cm/sec. 3. Internal Carotid Artery: Plaque description: Homogeneous 3.1. Proximal Segment: Peak systolic velocity 71 cm/sec: End-diastolic velocity 25 cm/sec - % stenosis 0-15% 3.2. Middle Segment: Peak systolic velocity 44 cm/sec: End-diastolic velocity 17 cm/sec - % stenosis 0-15% 3.3. Distal Segment: Peak systolic velocity 49 cm/sec: End-diastolic velocity 19 cm/sec - % stenosis 0-15% 4. External Carotid Artery: No significant focal plaque formation. Peak systolic velocity 100 cm/sec 5. ICA/CCA Ratio: 0.9 VERTEBRAL ARTERIES: 1. Right Vertebral Artery: The right vertebral artery flow direction is antegrade. 2. Left Vertebral Artery: The left vertebral artery flow direction is antegrade. OTHER FINDINGS: 1. Right Brachial Blood pressure: 140 mmHg. 2. Left Brachial Blood pressure: 130 mmHg. IMPRESSION: RIGHT: Duplex scan does not suggest hemodynamically significant stenosis of the right extracranial carotid arteries. LEFT: Duplex scan does not suggest hemodynamically significant stenosis of the left extracranial carotid arteries.
== END 2016-12-14 17:55 | disposition home or self-care (01) | DRG 14 ==
LOC: C.ER 13:11 → C.9E 15:24 → C.6T 18:52
PROVIDERS: ADMIT Internal Medicine; ATTEND Internal Medicine
DX: I63.9 Cerebral infarction, unspecified (principal); I10 Essential (primary) hypertension; I45.10 Unspecified right bundle-branch block; E78.5 Hyperlipidemia, unspecified; E78.00 Pure hypercholesterolemia, unspecified; G81.90 Hemiplegia, unspecified affecting unspecified side; E66.3 Overweight; Z88.6 Allergy status to analgesic agent; Z87.891 Personal history of nicotine dependence; Z85.038 Personal history of other malignant neoplasm of large intestine